=== PATIENT | female | born 1975 | race Caucasian/White ===

== ENCOUNTER → 2018-04-05 | Outpatient (CLI) | payer BC ==
--- NOTE | 2018-04-09 09:01 | MM ---
Reason for exam: screening (asymptomatic). Last mammogram was performed 3 years and 6 months ago. History: Patient had first child at age 31. Family history of breast cancer in mother at age 40, breast cancer in paternal cousin at age 36, and breast cancer in paternal aunt at age 40. Took hormonal contraceptives for 12 years. Physical Findings: A clinical breast exam by your physician is recommended on an annual basis and results should be correlated with mammographic findings. MG Screening Mammo w CAD Bilateral CC and MLO view(s) were taken. Prior study comparison: October 17, 2014, bilateral MG diagnostic mammo w CAD [facility]. April 02, 2012, CAD bilateral diagnostic mammogram. Finding: There is a typically benign equal density (isodense), circumscribed round mass in the upper quadrant, posterior position of the right breast on MLO view. New finding since October 17, 2014 and April 02, 2012. ASSESSMENT: Incomplete: need additional imaging evaluation, BI-RAD 0 RECOMMENDATION: Ultrasound of the right breast. [facility] will attempt to contact patient to return for ultrasound.
== END | disposition home or self-care (01) ==
LOC: RADMAMWWP 13:55
PROVIDERS: ATTEND Obstetrics & Gynecology
DX: Z12.31 Encounter for screening mammogram for malignant neoplasm of breast (principal)
CPT/HCPCS: 77067

== ENCOUNTER → 2018-04-20 | Outpatient (CLI) | payer BC ==
--- NOTE | 2018-04-23 09:06 | USB ---
Reason for exam: additional evaluation requested from abnormal screening. History: Patient had first child at age 31. Family history of breast cancer in mother at age 40, breast cancer in paternal cousin at age 36, and breast cancer in paternal aunt at age 40. Took hormonal contraceptives for 12 years. Physical Findings: Nurse did not find any significant physical abnormalities on exam. US Breast Workup Limited RT Right limited breast ultrasound including focal area of concern, retroareolar and axilla demonstrates a 1.0 x 0.6 x 1.2cm oval, cystic lesion at 10 o'clock. Cyst aspiration recommended with conversion to biopsy is unsuccessful, probable deep cyst. These results were verbally communicated with the patient and result sheet given to the patient on 04/20/18. ASSESSMENT: Suspicious, BI-RAD 4 RECOMMENDATION: Aspiration of the right breast. Called Dr. Gomez with mammographic findings and has scheduled an appointment for the patient for 05/30/18 at 2:[address] Jordan. Aspiration scheduled for 05/15/18 at 12:20. PRELIMINARY REPORT CALLED AND FAXED TO DR. JORDAN ON 04/20/18.
== END | disposition home or self-care (01) ==
LOC: RADUSWWP 15:45
PROVIDERS: ATTEND Obstetrics & Gynecology
DX: R92.8 Other abnormal and inconclusive findings on diagnostic imaging of breast (principal)

== ENCOUNTER → 2018-05-15 | Day surgery (SDC) | payer BC ==
[2018-05-15 12:31] VITALS: RESP 16; TEMP 97.7; BMI 73.3
--- NOTE | 2018-05-15 12:58 | USB ---
ULTRASOUND GUIDED FNA RIGHT BREAST CYST CLINICAL HISTORY: Abnormal right breast ultrasound FINDINGS: The procedure was explained to the patient. The risks, complications, benefits and alternatives were discussed and any questions were answered. Informed consent was obtained. Patient was placed supine on the ultrasound table and prepped and draped in the usual sterile fashion. Utilizing a 22 gauge needle a single pass was made into the requested right breast cyst. Has simple appearance and there is no residual cyst post aspiration. Surgical clip placed. Postprocedural mammogram demonstrates placement of the clip in ideal location. Patient was stable throughout the procedure. Pathology is pending. All elements of maximal barrier and sterile technique were utilized. IMPRESSION: 1. Successful ultrasound guided FNA right breast cyst. Pathology Results: Benign RIGHT BREAST, ASPIRATE: Clusters of bland apocrine cells, ductal cells and background degenerated cellular material consistent with fibrocystic disease. Recommendation Follow up ultrasound of the right breast in 6 months. KYLE
--- NOTE | 2018-05-15 13:06 | MM ---
Reason for exam: additional evaluation requested from abnormal screening. Last mammogram was performed 1 month ago. History: Patient had first child at age 31. Family history of breast cancer in mother at age 40, breast cancer in paternal cousin at age 36, and breast cancer in paternal aunt at age 40. Took hormonal contraceptives for 12 years. MG Diagnostic Mammo RT Wo CAD CC and ML view(s) were taken of the right breast. Prior study comparison: April 05, 2018, bilateral MG screening mammo w CAD. October 17, 2014, bilateral MG diagnostic mammo w CAD [facility]. ASSESSMENT: Post procedure mammogram for marker placement RECOMMENDATION: Ultrasound of the right breast in 6 months. PENDING PATHOLOGY RESULTS.
[2018-05-15 13:07] VITALS: BP 125/73; PULSE 70
== END ==
LOC: RADUSWWP 11:31
PROVIDERS: ATTEND Surgery
DX: N60.11 Diffuse cystic mastopathy of right breast (principal)
CPT/HCPCS: 88108; 77065; 76942; 19000; A4648

== ENCOUNTER → 2021-08-31 | Outpatient (CLI) | payer BC ==
[2021-08-31 14:11] LABS: Basophils # (A) 0.04 X 10*3/uL (0.00-0.10); Basophils % (A) 0.8 %; Eosinophils # (A) 0.16 X 10*3/uL (0.04-0.35); HCT 40.8 % (37.2-46.3); HGB 12.8 g/dL (12.0-15.0); Immature Grans, Automated 0.2 %; Lymphocytes # (A) 1.34 X 10*3/uL (0.90-5.00); Lymphocytes % (A) 25.5 %; MCH 29.8 pg (27.0-32.0); MCHC 31.4 g/dL (32.0-37.0); MCV 94.9 fL (80.0-97.0); Mean Platelet Volume 11.5 fL (9.5-12.2); Monocytes # (A) 0.43 X 10*3/uL (0.20-1.00); Monocytes % (A) 8.2 %; NRBC Per 100 WBC 0 /100 WBCS (0.0-0.0); Neutrophils # (A) 3.28 X 10*3/uL (1.80-7.70); Neutrophils % (A) 62.3 %; Platelet Count 184 X 10*3/uL (140-440); RDW 12.2 % (11.5-14.5); WBC 5.26 X 10*3/uL (4.50-10.00)
[2021-08-31 14:32] LABS: ALT 13 U/L (8-44); AST 20 U/L (13-35); African American GFR (CKD) 90.8 (60.0-200.0); Albumin 4.3 g/dL (3.8-4.9); Albumin/Globulin Ratio 1.46 (1.60-3.17); Alkaline Phosphatase 51 U/L (41-126); BUN/Creat Ratio 22.74 Ratio (12.00-20.00); Blood Urea Nitrogen 20.1 mg/dL (9.0-27.0); Calcium 8.9 mg/dL (8.7-10.3); Carbon Dioxide 21.9 mmol/L (20.0-27.5); Chloride 105 mmol/L (96-109); Chol/HDL Ratio 4.52 Ratio; Glucose 86 mg/dL (70-110); LDL Cholesterol,Calculated 118.5 mg/dL (0.0-131.0); Non-African American GFR(CKD) 78.4 (60.0-200.0); Sodium 138 mmol/L (135-145); Total Protein 7.3 g/dL (6.2-8.2)
--- NOTE | 2021-09-01 09:01 | MM ---
Reason for Exam: Screening (asymptomatic). Last mammogram was performed 3 year(s) and 5 month(s) ago. Patient History: Menarche at age 12. First Full-Term at age 31. Late child-bearing (after 30). Hormonal Contraceptives for 12 years until age 34. 05/15/2018, Benign Cyst Aspiration on the right side. Paternal cousin had breast cancer, age 36. Paternal aunt had breast cancer, age 40. Mother had breast cancer, age 40. Risk Values: Lakshmi 5 year model risk: 1.7%. NCI Lifetime model risk: 18.2%. Prior Study Comparison: 10/17/2014 Bilateral Diagnostic Mammogram, [facility]. 04/05/2018 Bilateral Screening Mammogram, [facility]. 05/15/2018 Right Diagnostic Mammogram, [facility]. Tissue Density: The breast tissue is heterogeneously dense. This may lower the sensitivity of mammography. Findings: Analyzed By CAD. There is no suspicious group of microcalcifications or new suspicious mass in either breast. Scattered benign-appearing calcifications left breast. Microclip marker). Overall Assessment: Benign, BI-RAD 2 Management: Screening Mammogram of both breasts in 1 year. A clinical breast exam by your physician is recommended on an annual basis and results should be correlated with mammographic findings. Electronically signed and approved by: Errol So M.D. Radiologis
== END | disposition home or self-care (01) ==
LOC: RADMAMWWP 07:00
PROVIDERS: ATTEND Family Medicine
DX: Z12.31 Encounter for screening mammogram for malignant neoplasm of breast (principal); Z80.3 Family history of malignant neoplasm of breast; Z68.33 Body mass index [BMI] 33.0-33.9, adult
CPT/HCPCS: 77063; 77067; 80053; 80061; 83036; 83525; 84439; 84443; 85025

== ENCOUNTER → 2023-02-07 | Outpatient (CLI) | payer BC ==
--- NOTE | 2023-02-08 08:16 | MM ---
Reason for Exam: Screening (asymptomatic). Last mammogram was performed 1 year(s) and 5 month(s) ago. Patient History: Menarche at age 12. First Full-Term at age 31. Late child-bearing (after 30). Hormonal Contraceptives for 12 years until age 34. 05/15/2018, Benign Cyst Aspiration on the right side. Paternal cousin had breast cancer, age 36. Paternal aunt had breast cancer, age 40. Mother had breast cancer, age 40. Risk Values: Lakshmi 5 year model risk: 1.8%. NCI Lifetime model risk: 18.0%. Prior Study Comparison: 04/05/2018 Bilateral Screening Mammogram, [facility]. 05/15/2018 Right Diagnostic Mammogram, [facility]. 08/31/2021 Bilateral MG 3D screening mammo w/cad, [facility]. Tissue Density: The breast tissue is heterogeneously dense. This may lower the sensitivity of mammography. Findings: Analyzed By CAD. Right breast biopsy clip. There is no suspicious group of microcalcifications or new suspicious mass. Overall Assessment: Benign, BI-RAD 2 Management: Screening Mammogram of both breasts in [address] [facility] will attempt to contact patient to return for supplemental views and ultrasound if indicated. Patient should continue monthly self-breast exams. A clinical breast exam by your physician is recommended on an annual basis. This exam should not preclude additional follow-up of suspicious palpable abnormalities. Note on Lakshmi scores and lifetime risk: 1. A Lakshmi score greater than 3% is considered moderate risk. If this is the case, consider specialist referral to assess eligibility for a risk reducing agent. 2. If overall lifetime risk for the development of breast cancer is 20% or higher, the patient may qualify for future screening with alternating mammogram and breast MRI. Electronically signed and approved by: Luca Eden DO
== END | disposition home or self-care (01) ==
LOC: RADMAMWWP 07:53
PROVIDERS: ATTEND Family Medicine
DX: Z12.31 Encounter for screening mammogram for malignant neoplasm of breast (principal); Z80.3 Family history of malignant neoplasm of breast
CPT/HCPCS: 77063; 77067